=== PATIENT | female | born 1980 | race Caucasian/White ===

== ENCOUNTER 2016-09-17 12:23 | Emergency (ER) | payer OTHER ==
[~2016-09-17 12:23] MED LIST: AZITHROMYCIN250 MG PO; BACTRIM DS TABL1 TA1 PO; DOLOBID500 MG PO; KENALOG CREAM; MOBIC PO; NAPROSYN250 M1 PO; NO MEDICATIONS; ROBAXIN500 MG PO; ROBITUSSIN A-C S5 ML PO; ROBITUSSIN15 MG; TYLENOL #3 PO; TYLOX 5/500 CAP1 CAP PO; VICODIN PO
== END 2016-09-17 14:15 | disposition left against medical advice (07) ==
LOC: CFTX 12:23 → CED 12:23
DX: Z53.21 Procedure and treatment not carried out due to patient leaving prior to being seen by health care provider (principal)